=== PATIENT | female | born 1985 | race Hispanic/Latino ===

== ENCOUNTER 2022-05-21 08:31 | Outpatient (CLI) | payer OTHER | END 2022-05-21 08:32 | disposition home or self-care (01) | LOC: BICMAMMO 08:31 | PROVIDERS: ATTEND Physician Assistant | DX: N63.25 Unspecified lump in the left breast, overlapping quadrants (principal); N63.12 Unspecified lump in the right breast, upper inner quadrant | CPT/HCPCS: 77066; G0279 ==

== ENCOUNTER → 2022-05-30 | Day surgery (SDC) | payer OTHER | END | disposition home or self-care (01) | LOC: BICULT 12:44 | PROVIDERS: ATTEND Physician Assistant | PROC: 0H9V3ZX Drainage of Bilateral Breast, Percutaneous Approach, Diagnostic (ICD-10-PCS; principal; 2022-05-30) | DX: D24.1 Benign neoplasm of right breast (principal); N60.32 Fibrosclerosis of left breast | CPT/HCPCS: 19083; 19084; 88305 ==

== ENCOUNTER 2023-02-06 13:42 | Outpatient (CLI) | payer OTHER | END 2023-02-06 13:43 | disposition home or self-care (01) | LOC: BICULT 13:42 | PROVIDERS: ATTEND Physician Assistant | DX: N63.21 Unspecified lump in the left breast, upper outer quadrant (principal) ==

== ENCOUNTER 2023-02-24 08:37 | Outpatient (CLI) | payer OTHER | END 2023-02-24 08:38 | disposition home or self-care (01) | LOC: BICMAMMO 08:37 | PROVIDERS: ATTEND Physician Assistant | DX: R92.8 Other abnormal and inconclusive findings on diagnostic imaging of breast (principal) | CPT/HCPCS: 76642; 77066; G0279 ==

== ENCOUNTER 2024-03-02 07:58 | Outpatient (CLI) | payer OTHER | END 2024-03-02 07:59 | disposition home or self-care (01) | LOC: BICMAMMO 07:58 | PROVIDERS: ATTEND Family Medicine | DX: N60.22 Fibroadenosis of left breast (principal) | CPT/HCPCS: 19083; 19084; 76642; 77066; 88305; G0279 ==